=== PATIENT | female | born 1985 | race Caucasian/White ===

== ENCOUNTER 2022-07-21 10:22 | Outpatient (CLI) | payer BC, SELFPAY ==
--- NOTE | 2022-07-21 08:45 | DI.RAD_ITS ---
Exam(s) XR KNEE RT 3V AP,LAT,ARLENE EXAM: XR KNEE RT 3V AP,LAT,ARLENE CLINICAL HISTORY: Right knee pain. TECHNIQUE: 2D digital imaging was performed. COMPARISON: No exams were available for comparison FINDINGS: 3 views No evidence of fracture nor joint space narrowing. However, there is a joint effusion noted the find ing internal derangement. No obvious degenerative changes. Bone density normal. No osseous lesions . Tibial plateau unremarkable IMPRESSION: No osseous findings in the knee but there is a significant joint effusion signifying internal derange ment. DATA REPOSITORY: RADIATION DOSE DELIVERED:
== END 2022-07-21 10:23 | disposition home or self-care (01) ==
LOC: DIORS 10:22
PROVIDERS: PCP Nurse Practitioner; Referring Provider Nurse Practitioner; Visit Provider Student in an Organized Health Care Education/Training Program
DX: M25.561 Pain in right knee (principal); M25.461 Effusion, right knee
CPT/HCPCS: 73562

== ENCOUNTER 2023-07-12 10:53 | Outpatient (REF) | payer BC, SELFPAY ==
--- NOTE | 2023-07-12 10:00 | PAPFT_PTH ---
PATIENT: Ambrosio Buenrostro LOC: [facility] U#:[id number] AGE/SX: 37/F ROOM: RE07/12/[address]: Trinity Jackson APRN : 1985 BED: DIS: 07/12/2023 SPEC #: [id number] RECD: 07/12/23 17:51 STATUS: YESY TINOCO #: [id number] KATIANA: 07/12/23 10:[address]: Trinity Jackson DEPT: COUNTS INCLUDE 234 BEDS AT THE [facility] Cytology RECD BY: Terri Smith Tissues: 1 - CX/ENDOCX FOR PAP SMEARS Procedures: PAP THIN PREP/UVM Screening HPV DNA PROBE Comments: [id number]
== END 2023-07-12 10:54 | disposition home or self-care (01) ==
LOC: LBN 10:53
PROVIDERS: PCP Nurse Practitioner; Visit Provider Nurse Practitioner
DX: R39.89 Other symptoms and signs involving the genitourinary system (principal)
CPT/HCPCS: 88142; 87086; 87624

== ENCOUNTER → 2023-07-22 01:18 | Outpatient (CLI) | payer BC, SELFPAY ==
--- NOTE | 2023-07-22 07:00 | DI.MAMMO_ITS ---
Exam(s) MAMMO SCREENING EXAM: MAMMO SCREENING CLINICAL HISTORY: screening,Z12.39,FAMILY H/O BREAST CA,Z80.3. TECHNIQUE: Bilateral full field digital CC and MLO mammographic images were obtained with 3D tomosyn thesis and utilizing computer aided detection (CAD). COMPARISON: None. This is a baseline mammogram on this 37-year-old. FINDINGS: Fibroglandular tissue pattern is moderately dense, this somewhat decreasing the sensitivity of the ma mmogram for finding hidden underlying lesions. There are no CAD designations. There are no obvious spiculated masses nor malignant appearing microcalcification groups. There is no significant architectural distortion nor skin thickening-retraction. IMPRESSION: Dense bilateral fibroglandular tissue. No obvious radiographic evidence of malignancy. BI-RADS Category 1 - Negative Breast Density - Category C - Heterogeneously dense Breast density Category C or D implies that the patient has dense breast tissue. Dense breast tissue can make it harder to find cancer on a mammogram. Dense breast tissue is also associated with an incr eased risk of breast cancer. This information about the result of the mammogram report was provided to the patient to raise their awareness. Use this report when you speak with the patient about their risks for breast cancer, which includes their family history. At that time, you may recommend additional screening tests (Ultrasoun d or MRI) as these tests may add significant information. A negative radiographic report should not delay biopsy if a dominant or clinically suspicious mass is present. Up to ten percent of cancers are not identified on mammography. A negative report may reinforce clinical impression. Adenosis and dense breasts may obscure an underlying neoplasm. False positive reports average 6 to 10%. Patient will receive a letter notifying them of these results.
[2023-07-22 09:15] LABS: Abs Immature Grans 0.03 10^3/uL (0.0-0.06); Absolute Basophil Count 0.02 10^3/uL (0.0-0.2); Absolute Eosinophil Count 0.12 10^3/uL (0.0-0.7); Absolute Lymphocyte Count 2.68 10^3/uL (1.2-3.4); Absolute Monocyte Count 0.43 10^3/uL (0.1-0.8); Absolute Neutrophil Count 3.78 10^3/uL (1.2-6.7); Basophils % 0.3 %; Eosinophils % 1.7 %; HCT 34.7 % (36.0-46.0); Immature Grans % 0.4 %; MCH 31.7 pg (27.0-33.0); MCHC 34.6 % (32.0-36.0); MCV 92 fL (80-95); MPV 9.1 fL (8.0-11.0); Monocytes % 6.1 %; Neutrophils % 53.5 %; Platelet Count 299 10^3/uL (130-400); RBC 3.79 10^6/uL (3.93-5.22); RDW 12.1 % (11.7-14.6); RDW-SD 40.5 fL; WBC 7.06 10^3/uL (4.4-10.8)
[2023-07-22 10:31] LABS: ALT 18 U/L (14-59); AST 11 U/L (15-37); Albumin 3.6 g/dL (3.4-5.0); Alkaline Phosphatase 49 U/L (46-116); Anion Gap 7.3 mmol/L (3-11); BUN 18 mg/dL (7-18); Bilirubin, Total 0.3 mg/dL (0.2-1.0); CO2 28.7 mmol/L (21.0-32.0); CREATININE 0.9 mg/dL (0.55-1.02); Calcium 9.3 mg/dL (8.5-10.1); Calculated LDL 115 mg/dL (<100); Chloride 103 mmol/L (98-107); Cholesterol 165 mg/dL (<200); Estimated GFR 83.92 (mL/min/1.73m2); Glucose 89 mg/dL (74-106); HDL Cholesterol 44 mg/dL (40-60); Potassium 4.2 mmol/L (3.5-5.1); Sodium 139 mmol/L (136-145); TSH (W/Ref FT4) 1.93 uIU/mL (0.36-3.74); Total Protein 7.6 g/dL (6.4-8.2); Triglyceride 31 mg/dL (<150)
== END ==
PROVIDERS: PCP Nurse Practitioner; Referring Provider Nurse Practitioner; Visit Provider Nurse Practitioner
DX: Z12.31 Encounter for screening mammogram for malignant neoplasm of breast (principal); Z80.3 Family history of malignant neoplasm of breast; Z13.220 Encounter for screening for lipoid disorders; R53.83 Other fatigue; Z83.3 Family history of diabetes mellitus; J45.909 Unspecified asthma, uncomplicated
CPT/HCPCS: 36415; 77063; 77067; 80053; 80061; 84443; 85025

== ENCOUNTER 2024-10-19 03:15 | Outpatient (CLI) | payer OTHER, SELFPAY ==
[2024-10-19 07:56] LABS: Abs Immature Grans 0.01 10^3/uL (0.0-0.06); HCT 36.8 % (36.0-46.0); HGB 12.4 g/dL (11.2-15.7); Immature Grans % 0.2 %; MCH 31.6 pg (27.0-33.0); MCHC 33.7 % (32.0-36.0); MCV 94 fL (80-95); MPV 9.5 fL (8.0-11.0); Platelet Count 232 10^3/uL (130-400); RBC 3.92 10^6/uL (3.93-5.22); RDW 12.4 % (11.7-14.6); RDW-SD 42.7 fL; WBC 5.96 10^3/uL (4.4-10.8)
[2024-10-19 08:25] LABS: Hemoglobin A1C 4.8 % (<5.7)
[2024-10-19 08:48] LABS: ALT 15 U/L (14-59); AST 14 U/L (15-37); Albumin 3.9 g/dL (3.4-5.0); Alkaline Phosphatase 43 U/L (46-116); Anion Gap 6.1 mmol/L (3-11); BUN 23 mg/dL (7-18); Bilirubin, Total 0.5 mg/dL (0.2-1.0); CO2 30.9 mmol/L (21.0-32.0); Calcium 8.9 mg/dL (8.5-10.1); Calculated LDL 116 mg/dL (<100); Chloride 103 mmol/L (98-107); Cholesterol 188 mg/dL (<200); Estimated GFR 73.04 (mL/min/1.73m2); Glucose 89 mg/dL (74-106); HDL Cholesterol 65 mg/dL (>or=50); Potassium 4.0 mmol/L (3.5-5.1); Sodium 140 mmol/L (136-145); TSH 2.92 uIU/mL (0.36-3.74); Total Protein 7.0 g/dL (6.4-8.2); Triglyceride 35 mg/dL (<150)
[2024-10-19 09:12] LABS: Glucose Negative (Negative)
== END 2024-10-19 03:16 | disposition home or self-care (01) ==
PROVIDERS: PCP Nurse Practitioner; Referring Provider Family Medicine; Visit Provider Family Medicine
DX: Z13.9 Encounter for screening, unspecified (principal); R73.9 Hyperglycemia, unspecified; R53.83 Other fatigue
CPT/HCPCS: 36415; 80053; 80061; 81003; 83036; 84443; 85025

== ENCOUNTER 2024-10-19 03:43 | Outpatient (CLI) | payer OTHER, SELFPAY ==
--- NOTE | 2024-10-19 05:46 | DI.MAMMO_ITS ---
Exam(s) MAMMO SCREENING EXAM: MAMMO SCREENING CLINICAL HISTORY: screening,z12.39. TECHNIQUE: Bilateral full field digital CC and MLO mammographic images were obtained with 3D tomosynthesis and utilizing computer aided detection (CAD). COMPARISON: Prior baseline mammogram of July 2023 was reviewed. FINDINGS: Fibroglandular tissue pattern is again noted be moderately dense. There are no new spiculated masses nor malignant appearing microcalcification groups. There is no significant architectural distortion nor skin thickening-retraction. IMPRESSION: No radiographic evidence of malignancy. BI-RADS Category 1 - Negative Breast Density - Category C - The breast are heterogeneously dense, which may obscure small masses. Breast density Category C or D implies that the patient has dense breast tissue. Dense breast tissue can make it harder to find cancer on a mammogram. Dense breast tissue is also associated with an increased risk of breast cancer. This information about the result of the mammogram report was provided to the patient to raise their awareness. Use this report when you speak with the patient about their risks for breast cancer, which includes their family history. At that time, you may recommend additional screening tests (Ultrasound or MRI) as these tests may add significant information. A negative radiographic report should not delay biopsy if a dominant or clinically suspicious mass is present. Up to ten percent of cancers are not identified on mammography. A negative report may reinforce clinical impression. Adenosis and dense breasts may obscure an underlying neoplasm. False positive reports average 6 to 10%. Patient will receive a letter notifying them of these results.
== END 2024-10-19 04:03 ==
LOC: DI 03:43
PROVIDERS: PCP Nurse Practitioner; Visit Provider Family Medicine
DX: Z12.31 Encounter for screening mammogram for malignant neoplasm of breast (principal); R92.323 Mammographic fibroglandular density, bilateral breasts
CPT/HCPCS: 77063; 77067